=== PATIENT | female | born 2000 | race Caucasian/White ===

== ENCOUNTER 2020-06-03 16:54 | Observation (INO) | payer MEDICAID, OTHER ==
[~2020-06-03] VITALS: Ht 157.5 cm; Wt 77.1 kg
[2020-06-03] MEDS ORDERED: PREN1TAB22 PO (17:16)
== END 2020-06-03 22:00 | disposition home or self-care (01) ==
LOC: 8 EST LDRP 16:54
PROVIDERS: ADMIT Obstetrics & Gynecology; ATTEND Obstetrics & Gynecology
DX: O62.9 Abnormality of forces of labor, unspecified (principal); Z3A.35 35 weeks gestation of pregnancy
CPT/HCPCS: 59025; 76805; 76818; 99281; G0378

== ENCOUNTER 2020-06-04 21:14 | Inpatient (IN) | payer OTHER ==
[~2020-06-04] VITALS: Ht 160 cm; Wt 77.6 kg
[~2020-06-04 21:14] MED LIST: PREN1TAB22 PO
[2020-06-04] MEDS ORDERED: LIDOCAINE HCL 1% 20ML VIAL (Pyxis) INJ INFIL SCH (22:30)
[2020-06-04] MEDS ORDERED: METHYLERGONOVINE MALEATE 0.2 MG/ML IM PRN (22:30)
[2020-06-04] MEDS ORDERED: DEXT 5%/LR + PITOCIN 20UNITS/L 1,000 ML IV SCH (22:30)
[2020-06-04] MEDS ORDERED: NALOXONE HCL 0.4 MG/ML 1ML VIAL IM PRN (22:30)
[2020-06-04] MEDS ORDERED: CARBOPROST TROMETHAMINE 250 MCG/ML AMPUL IM PRN (22:30)
[2020-06-04] MEDS: LACTATED RINGERS 1,000 ML IV SCH (23:19)
[2020-06-04 23:39] LABS: BASOPHILS % 0.2 % (0.0-2.0); EOSINOPHILS % 0.2 % (0.0-5.0); HEMATOCRIT. 36.3 % (36.0-48.0); HEMOGLOBIN. 12.1 g/dL (12.0-16.0); LYMPHOCYTES % 18.2 % (20.0-50.0); MEAN CORPUSCULAR HEMOGLOBIN 28.5 pg (28.0-32.0); MEAN CORPUSCULAR VOLUME 85.6 fL (81.0-99.0); MEAN PLATELET VOLUME 10.2 fl (7.4-10.4); MONOCYTES % 6.7 % (2.0-8.0); NEUTROPHILS % 74.7 % (40.0-76.0); PLATELET 225 x1000/uL (130-400); RED BLOOD CELL COUNT 4.23 mill/uL (4.2-5.4); RED CELL DISTRIBUTION WIDTH 14.2 % (11.6-14.6)
[2020-06-04] MEDS: BUTORPHANOL TARTRATE 2 MG/ML VIAL IV PRN (23:44)
[2020-06-04 23:46] LABS: CLARITY URINE CLOUDY (CLEAR); COLOR URINE DARK YELLOW (YELLOW); KETONES URINE NEGATIVE (NEGATIVE); LEUKOCYTE ESTERASE URINE 1+ (NEGATIVE); NITRITE URINE NEGATIVE (NEGATIVE); OCCULT BLOOD URINE 2+ (NEGATIVE); PROTEIN URINE TRACE (NEGATIVE); SPECIFIC GRAVITY URINE 1.028 (1.005-1.030)
[2020-06-04 23:50] LABS: INR 0.9; PROTHROMBIN TIME 9.7 sec (9.6-11.0)
[2020-06-04 23:59] LABS: METHADONE URINE SCREEN NEGATIVE (NEGATIVE); OPIATES URINE SCREEN NEGATIVE (NEGATIVE)
[2020-06-05] LABS: *AMPHETAMINES SCREEN URINE NEGATIVE (NEGATIVE); *BARBITURATES SCREEN URINE NEGATIVE (NEGATIVE); *BENZODIAZEPINES SCREEN URINE NEGATIVE (NEGATIVE); *COCAINE SCREEN URINE NEGATIVE (NEGATIVE); CANNABINOID URINE SCREEN NEGATIVE (NEGATIVE); PHENCYCLIDINE URINE SCREEN NEGATIVE (NEGATIVE)
[2020-06-05 00:14] LABS: HEPATITIS B SURFACE ANTIGEN NEGATIVE
[2020-06-05] MEDS: BUTORPHANOL TARTRATE 2 MG/ML VIAL IV PRN ×2 (02:09→14:10)
[2020-06-05] MEDS ORDERED: MISOPROSTOL 200MCG TABLET ONE (03:00)
[2020-06-05] MEDS ORDERED: BUPIVACAINE HCL/PF 0.25% (2.5MG/ML) 10ML ONE ×2 (03:11→03:12)
[2020-06-05] MEDS ORDERED: FENTANYL CITRATE/PF 50MCG/ML 2ML VIAL ONE (03:11)
[2020-06-05] MEDS ORDERED: EPHEDRINE SULFATE 50MG/ML VIAL ONE (03:12)
[2020-06-05] MEDS: LACTATED RINGERS 1,000 ML IV SCH ×2 (03:14→06:43)
[2020-06-05] MEDS ORDERED: ROPIVACAINE HCL/PF 0.2% (2MG/ML) EPID 200ML EPI SCH (03:15)
[2020-06-05] MEDS ORDERED: IBUPROFEN 400MG TABLET PO PRN (13:15)
[2020-06-05] MEDS ORDERED: HEMORRHOIDAL SUPP PR PRN (13:15)
[2020-06-05] MEDS ORDERED: ACETAMINOPHEN WITH CODEINE 300/30MG TABLET PO PRN (13:15)
[2020-06-05] MEDS ORDERED: BISACODYL 10MG SUPP PR PRN (13:15)
[2020-06-05] MEDS ORDERED: LANOLIN OINT 7GM TUBE TOP PRN (13:15)
[2020-06-05] MEDS ORDERED: DIPHENHYDRAMINE 25MG CAPSULE PO PRN (13:15)
[2020-06-05] MEDS ORDERED: DEXT 5%/LR + PITOCIN 20UNITS/L 1,000 ML IV SCH (13:15)
[2020-06-05] MEDS ORDERED: GLYCERIN/WITCH HAZEL LEAF MEDICATED PAD TOP PRN (13:15)
[2020-06-05] MEDS: IBUPROFEN 800MG TABLET PO PRN (13:30)
[2020-06-05 14:45] VITALS: BP 112/68
[2020-06-05] MEDS: MAGNESIUM/ALUMINUM HYDROXIDE/SIMETHICONE 30ML UDC PO SCH (17:13)
[2020-06-05] MEDS: SIMETHICONE 80MG TABLET CHEW PO SCH (17:14)
[2020-06-05] MEDS: BENZOCAINE/LANOLIN/ALOE VERA SPRAY TOP PRN (17:17)
[2020-06-05] MEDS ORDERED: DOCUSATE SODIUM 100MG CAPSULE PO SCH (21:00)
[2020-06-06] VITALS: BP 110/70
[2020-06-06] MEDS: MAGNESIUM/ALUMINUM HYDROXIDE/SIMETHICONE 30ML UDC PO SCH ×3 (01:33→17:24)
[2020-06-06] MEDS: IBUPROFEN 800MG TABLET PO PRN ×3 (01:35→17:24)
[2020-06-06] MEDS: SIMETHICONE 80MG TABLET CHEW PO SCH ×4 (01:39→17:24)
[2020-06-06 05:28] VITALS: BP 90/50
[2020-06-06 07:58] LABS: BASOPHILS % 0.4 % (0.0-2.0); EOSINOPHILS % 0.9 % (0.0-5.0); HEMATOCRIT. 28.6 % (36.0-48.0); HEMOGLOBIN. 9.4 g/dL (12.0-16.0); LYMPHOCYTES % 20.6 % (20.0-50.0); MEAN CORPUSCULAR HEMOGLOBIN 28.8 pg (28.0-32.0); MEAN CORPUSCULAR VOLUME 87.8 fL (81.0-99.0); MEAN PLATELET VOLUME 10.4 fl (7.4-10.4); MONOCYTES % 7.5 % (2.0-8.0); NEUTROPHILS % 70.6 % (40.0-76.0); PLATELET 165 x1000/uL (130-400); RED BLOOD CELL COUNT 3.26 mill/uL (4.2-5.4); RED CELL DISTRIBUTION WIDTH 14.7 % (11.6-14.6)
[2020-06-06] MEDS ORDERED: FERR325T23 PO (08:02)
[2020-06-06] MEDS ORDERED: IBUP-2030 PO (08:02)
[2020-06-06] MEDS: FERROUS SULFATE 325MG TABLET PO SCH ×3 (08:31→17:24)
[2020-06-06] MEDS ORDERED: PRENATAL VIT/FE FUMARATE/FA TABLET PO SCH (09:00)
[2020-06-06 15:00] VITALS: BP 98/58
[2020-06-06] MEDS: BENZOCAINE/LANOLIN/ALOE VERA SPRAY TOP PRN (17:23)
== END 2020-06-06 17:45 | disposition home or self-care (01) | DRG 560 ==
LOC: 8 EST LDRP 21:14 → OBSVTOIN 21:14 → 8EST 06-05 14:54
PROVIDERS: ADMIT Obstetrics & Gynecology; ATTEND Obstetrics & Gynecology
PROC: 10E0XZZ Delivery of Products of Conception, External Approach (ICD-10-PCS; principal; 2020-06-05)
PROC: 0KQM0ZZ Repair Perineum Muscle, Open Approach (ICD-10-PCS; 2020-06-05)
PROC: 3E0R3BZ Introduction of Anesthetic Agent into Spinal Canal, Percutaneous Approach (ICD-10-PCS; 2020-06-05)
PROC: 00HU33Z Insertion of Infusion Device into Spinal Canal, Percutaneous Approach (ICD-10-PCS; 2020-06-05)
DX: O70.1 Second degree perineal laceration during delivery (principal); Z37.0 Single live birth; Z3A.39 39 weeks gestation of pregnancy
CPT/HCPCS: 36415; 80305; 81003; 85025; 86592; 86703; 86762; 86850; 86900; 87340; 99281; G0378; J0595; J2590; J2795; J3010; J3490; A4315

== ENCOUNTER 2023-07-11 14:34 | Emergency (ER) | payer OTHER ==
[~2023-07-11] VITALS: Ht 157.5 cm; Wt 67.0 kg
[~2023-07-11 14:34] MED LIST changes: +FERR325T23 PO; +IBUP-2030 PO
[2023-07-11 14:39] VITALS: BP 100/61; RESP 16; TEMP 98.8; O2SAT 100
[2023-07-11 14:41] VITALS: PULSE 90
[2023-07-11 15:27] LABS: BASOPHILS % 0.1 % (0.0-2.0); EOSINOPHILS % 0.2 % (0.0-5.0); HEMATOCRIT. 46.2 % (36.0-48.0); HEMOGLOBIN. 15.7 g/dL (12.0-16.0); LYMPHOCYTES % 7.7 % (20.0-50.0); MEAN CORPUSCULAR HEMOGLOBIN 31.1 pg (28.0-32.0); MEAN CORPUSCULAR VOLUME 91.5 fL (81.0-99.0); MEAN PLATELET VOLUME 9.2 fl (7.4-10.4); PLATELET 249 x1000/uL (130-400); RED BLOOD CELL COUNT 5.05 mill/uL (4.2-5.4); RED CELL DISTRIBUTION WIDTH 13.5 % (11.6-14.6); WHITE BLOOD COUNT 25.7 x1000/uL (4.5-11.0)
[2023-07-11 15:51] LABS: HCG SCREEN NEGATIVE
[2023-07-11 15:56] LABS: ALANINE AMINOTRANSFERASE 14 IU/L (10-49); ALBUMIN 4.7 g/dL (3.2-4.8); ASPARTATE AMINOTRANSFERASE 12 IU/L (<34); BILIRUBIN TOTAL 0.6 mg/dL (0.1-1.0); CALCIUM 9.6 mg/dL (8.7-10.4); CARBON DIOXIDE 25 mEq/L (21-32); CHLORIDE 108 mEq/L (98-107); CREATININE 0.5 mg/dL (0.6-1.0); GLUCOSE 118 mg/dL (70-105); POTASSIUM 4.2 mEq/L (3.5-5.1); SODIUM 140 mEq/L (136-145); UREA NITROGEN BLOOD 11 mg/dL (9-23)
[2023-07-11 16:01] LABS: CLARITY URINE CLOUDY (CLEAR); COLOR URINE DARK YELLOW (YELLOW); GLUCOSE URINE NEGATIVE (NEGATIVE); KETONES URINE 3+ (NEGATIVE); LEUKOCYTE ESTERASE URINE TRACE (NEGATIVE); NITRITE URINE NEGATIVE (NEGATIVE); OCCULT BLOOD URINE 1+ (NEGATIVE); PH URINE 5.5 (4.5-8.0); PROTEIN URINE 1+ (NEGATIVE); SPECIFIC GRAVITY URINE 1.034 (1.005-1.030); UROBILINOGEN URINE 0.2 E.U./dL (0.2-1.0)
[2023-07-11 16:30] LABS: BACTERIA URINE NONE SEEN; SQUAMOUS EPITHELIAL CELL URINE 2+ /lpf (RARE/1+); WBC URINE 0-2 /hpf (0-2)
== END 2023-07-11 23:51 | disposition left against medical advice (07) ==
LOC: ER 15:11
DX: R11.2 Nausea with vomiting, unspecified (principal); Z53.21 Procedure and treatment not carried out due to patient leaving prior to being seen by health care provider
CPT/HCPCS: 36415; 80053; 81003; 84703; 85025; 99281